=== PATIENT | female | born 1960 | race Caucasian/White ===

== ENCOUNTER 2016-06-06 07:57 | Emergency (ER) | payer SELFPAY ==
[~2016-06-06 07:57] MED LIST: ACET500CAP PO; AFRIN15 NAS; COREG6 PO; FISH-EPA1000 MG PO; MACROBID PO; MICROZIDE PO; PEP20 PO; PROVHFA INH; SINGULAIR1 PO; VITAMIN D400 UNI1 PO; ZANTAC OTC PO; ZOL100 PO
== END 2016-06-06 09:09 | disposition home or self-care (01) ==
LOC: ER 07:57
DX: S05.01XA Injury of conjunctiva and corneal abrasion without foreign body, right eye, initial encounter (principal); H10.9 Unspecified conjunctivitis; J44.9 Chronic obstructive pulmonary disease, unspecified; I10 Essential (primary) hypertension; Z88.0 Allergy status to penicillin; Z88.2 Allergy status to sulfonamides; Z88.1 Allergy status to other antibiotic agents; Z79.899 Other long term (current) drug therapy
CPT/HCPCS: 99284; A9270-GY